=== PATIENT | female | born 1995 | race African-American/Black ===

== ENCOUNTER 2018-07-04 00:39 | Emergency (ER) | END 2018-07-04 02:03 | disposition home or self-care (01) ==

== ENCOUNTER 2018-09-18 09:08 | Emergency (ER) | END 2018-09-18 10:52 | disposition home or self-care (01) ==

== ENCOUNTER 2018-12-30 14:37 | Emergency (ER) | payer OTHER ==
[~2018-12-30] VITALS: Ht 165.1 cm; Wt 114.0 kg
[~2018-12-30 14:37] MED LIST: ALBU2.5V3 NEB; ALBU8.5H8 INH; BENZ-6 PO; CEPASTAT MT; CEPH-443 PO; CETI10CA PO; DIPH25CA6 PO; GUAI120S26 PO; GUAI5SYR2 PO; IBUP-1542 PO; IPRA3AMP29 INHALATION; LEVO750T25 PO; PRED20TA PO; TRAM50TA2 PO
[2018-12-30 14:43] VITALS: BP 159/81; RESP 22; Ht 165.1 cm; Wt 114.0 kg
[2018-12-30] MEDS ORDERED: ALBUTEROL 0.5% (NEB) 2.5 MG/0.5 ML AMP INH STA (14:54)
[2018-12-30] MEDS ORDERED: IPRATROPIUM (NEB) 0.5 MG/2.5 ML AMP INH STA (14:54)
[2018-12-30] MEDS ORDERED: predniSONE 20 MG TAB PO STA (14:54)
[2018-12-30] MEDS ORDERED: ALBU2.5V3 NEB (15:34)
[2018-12-30] MEDS ORDERED: ALBU8.5H8 INH (15:34)
[2018-12-30] MEDS ORDERED: FLUT200B INHALATION (15:34)
[2018-12-30] MEDS ORDERED: PRED50TA PO (15:34)
--- NOTE | 2018-12-30 15:38 | ERD ---
ER Documentation Chief Complaint Chief Complaint SOB X 1 DAY, HX OF ASTHMA, INHALER AND NEB NOT HELPING HPI 23-year-old female presents the emergency department complaining of shortness of breath. Patient states she began with URI symptoms proximal me 24-48 hours ago. She then began having difficulty with wheezing. She had no fevers or chills. She had no sputum production. Her asthma was not improving with her usual inhalers and she continued to feel short of breath and came to the emergency department for evaluation. ROS All systems reviewed and are negative except as per history of present illness. Medications Home Meds Active Scripts Albuterol Sulfate* (Proair HFA*) 8.5 Gm Hfa.aer.ad, 2 PUFF INH Q4H PRN for WHEEZING AND SOB, #1 INHALER Prov:CARMEN AMAYA 12/30/18 Albuterol Sulfate* (Albuterol Sulfate* Neb) 0.083%-3 Ml Neb, 2.5 MG NEB Q4H for sob, #30 VIAL Prov:CARMEN AMAYA 12/30/18 Fluticasone Furoate (Arnuity Ellipta) 200 Mcg Blst.w.dev, 200 MCG INHALATION DA FIDELINA, #1 INHALER Prov:CARMEN AMAYA 12/30/18 Prednisone* (Prednisone*) 50 Mg Tablet, 50 MG PO DAILY, #5 TAB Prov:CARMEN AMAYA 12/30/18 Cephalexin* (Keflex*) 500 Mg Capsule, 500 MG PO QID for 7 Days, CAP Prov:CAMRYN ALDANA MD 09/18/18 Tramadol HCl (Tramadol HCl) 50 Mg Tablet, 50 MG PO Q4 PRN for PAIN, #15 TAB Prov:CAMRYN ALDANA MD 09/18/18 Ibuprofen* (Motrin*) 600 Mg Tab, 600 MG PO Q6, #20 TAB Prov:CAMRYN ALDANA MD 09/18/18 Guaifenesin-Dextromethorphan* (Robitussin* DM) 100MG/10MG/5ML Syrup, 10 ML PO Q4H PRN for COUGH, #120 ML Prov:TOBY DONALDSON 07/04/18 Benzonatate* (Tessalon Perle*) 100 Mg Capsule, 100 MG PO Q8H PRN for COUGH, #14 CAP Prov:JOSE ROBERTO DONALDSONAR F 07/04/18 Albuterol Sulfate* (Proair HFA*) 8.5 Gm Hfa.aer.ad, 2 PUFF INH Q4H PRN for WHEEZING AND SOB, #1 INHALER Prov:JOSE ROBERTO DONALDSONAR F 07/04/18 Prednisone* (Prednisone*) 20 Mg Tab, 60 MG PO DAILY for 4 Days, TAB Prov:JOSE ROBERTO DONALDSONAR F 07/04/18 Albuterol Sulfate* (Albuterol Sulfate* Neb) 0.083%-3 Ml Neb, 2.5 MG NEB Q4 PRN for SHORTNESS OF BREATH, #30 EA Prov:MARGRETILAJOSE ROBERTO ABRAMSAR F 07/04/18 Albuterol Sulfate* (Albuterol Sulfate* Neb) 0.083%-3 Ml Neb, 2.5 MG NEB Q4H, #30 VIAL 5 Refills Prov:RAHI,MONICO S. 05/31/16 Throat Lozenges* (Cepastat*) 9 Sri Lozenge, 1 LOZENGE MT Q1H PRN for COUGH for 30 Days, #120 LOZENGE Prov:RAHI,MONICO S. 05/31/16 Albuterol Sulfate* (Proair HFA*) 8.5 Gm Hfa.aer.ad, 2 PUFF INH Q4H PRN for WHEEZING AND SOB, #1 INHALER 4 Refills Prov:RAHI,MONICO S. 05/31/16 Levofloxacin* (Levaquin*) 750 Mg Tablet, 750 MG PO DAILY for 5 Days, #5 TAB Prov:RAHI,MONICO S. 05/31/16 Prednisone* (Prednisone*) 20 Mg Tab, 60 MG PO DAILY for 5 Days, #5 TAB Prov:RAHI,MONICO S. 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 Ipratropium-Albuterol (Ipratropium-Albuterol) 0.5-3 Mg/3 Ml Ampul.neb, 3 ML INHALATION Q6, #30 VIAL Prov:ERIKA MENDOZAHannah CASILLAS 05/29/16 Reported Medications Diphenhydramine Hcl* (Diphenhydramine Hcl*) 25 Mg Capsule, 25 MG PO Q6 PRN for ITCHING, CAP 05/29/16 Allergies Allergies: Coded Allergies: No Known Allergy (Unverified , 12/30/18) PMhx/Soc History of Surgery: No Anesthesia Reaction: No Hx Neurological Disorder: No Hx Respiratory Disorders: Yes (ASTHMA) Hx Cardiac Disorders: No Hx Psychiatric Problems: No Hx Miscellaneous Medical Probl: No Hx Alcohol Use: Yes (OCC) Hx Substance Use: No Hx Tobacco Use: No Physical Exam Vitals Vital Signs Date Temp Pulse Resp B/P (MAP) Pulse Ox O2 O2 Flow FiO2 Time Delivery Rate 12/30/18 103 22 96 21 15:02 12/30/18 97.9 98 22 159/81 97 14:43 (107) Physical Exam GENERAL: The patient is well developed and appropriate for usual state of health in no apparent distress HEENT: Pupils equal, round, and reactive to light. EOMI. There is no scleral icterus. NECK: C-spine is soft and supple, there is no meningismus. There is no cervical lymphadenopathy. LUNGS: Wheezing bilaterally. Decreased tidal volume. No tachypnea or retractions. HEART: Regular rate and rhythm, no murmurs, clicks, rubs or gallops. ABDOMEN: Soft, non-tender, non-distended. There are bowel sounds in all four quadrants. No rebound or guarding. EXTREMITIES: There is no peripheral cyanosis or edema. No focal swelling or erythema. NEURO: The patient moves all four extremities with 5/5 strength. Cranial nerves II - XII are intact. Normal gait. Alert and oriented SKIN: There is no apparent rash or petechiae. HEME/LYMPHATIC: There is no evidence of excessive bruising or lymphedema. PSYCHIATRIC: The patient does not appear anxious or depressed. Results 24 hrs Current Medications Medications Dose Sig/Jeannette Start Time Status Last (Trade) Ordered Route PRN Stop Time Admin Dose Reason Admin Albuterol 10 mg ONCE STAT 12/30/18 DC 12/30/18 (Proventil INH 14:54 12/30/18 15:02 0.5% (Neb)) 14:55 Ipratropium 1 mg ONCE STAT 12/30/18 DC 12/30/18 [place] INH 14:54 12/30/18 15:01 (Atrovent 14:55 0.02% (Neb)) Prednisone 60 mg ONCE STAT 12/30/18 DC 12/30/18 (Prednisone) PO 14:54 12/30/18 15:00 14:55 Procedures/MDM Patient was taken to a room, seen and evaluated. Comfort measures were initiated. Breathing treatments were initiated REEVALUATION: 1535: Patient was reevaluated. Patient's lungs were improving with improved tidal volume. Wheezing was diminished. She had no tachypnea or retractions and felt much better. MEDICAL DECISION MAKIN-year-old female presents the emergency department with symptoms consistent with asthma. At this time she shows no evidence of pneumonia, respiratory distress or hypoxemia. After supportive care, she appears to be improving and seems appropriate for outpatient care. Departure Diagnosis: Primary Impression: Asthma exacerbation Condition: Stable Patient Instructions: Asthma Additional Instructions: Please return to the emergency department for any worsening shortness of breath, fevers or other high-risk concerns. CARMEN AMAYA Dec 30, 2018 15:38
[2018-12-30 15:44] VITALS: PULSE 109
== END 2018-12-30 15:44 | disposition home or self-care (01) ==
LOC: FTE 14:37
DX: J45.901 Unspecified asthma with (acute) exacerbation (principal)
CPT/HCPCS: 94644; J7512; Z7502; Z7610